=== PATIENT | male | born 1955 | race African-American/Black ===

== ENCOUNTER 2019-12-04 20:54 | Emergency (ER) | payer OTHER ==
[~2019-12-04] VITALS: Ht 172.7 cm; Wt 68.9 kg
[2019-12-04 21:25] VITALS: Ht 172.7 cm; Wt 68.9 kg
[2019-12-04 23:34] VITALS: BP 125/84
== END 2019-12-04 23:34 | disposition home or self-care (01) ==
LOC: ED 20:54
DX: M79.604 Pain in right leg (principal); C90.00 Multiple myeloma not having achieved remission; K21.9 Gastro-esophageal reflux disease without esophagitis; Z90.12 Acquired absence of left breast and nipple; Z90.6 Acquired absence of other parts of urinary tract
CPT/HCPCS: Q0092